=== PATIENT | female | born 1965 | race Caucasian/White ===

== ENCOUNTER 2019-04-29 14:33 | Inpatient (IN) ==
[2019-04-29] MEDS ORDERED: SODIUM CHLORIDE 0.9% 1,000 ML IV STA ×2 (14:59→15:25)
[2019-04-29 15:06] LABS: Basophils # 0.1 10*3/uL (0.0-0.2); Basophils % 0.3 % (0.0-0.8); Hematocrit 42.2 VOL% (35.7-47.0); Immature Granulocytes Absolute 0.35 #; Lymphocytes % 2.8 % (21.3-54.2); Mean Corpuscular HGB Conc 33.2 GM/DL (32-36); Mean Corpuscular Volume 92.7 FL (87-102); Mean Platelet Volume 11.5 FL (9.6-12.0); Monocytes % 4.6 % (1.7-12.7); Neutrophils % 91.3 % (38.7-73.9); Platelet Count 314 T/CUMM (130-400); Red Blood Count 4.55 MC/CUMM (3.8-5.5); Red Cell Distribution Width 13.2 % (9.3-17.3); White Blood Count 33.8 T/CUMM (4-12)
[2019-04-29 15:13] LABS: INR 1.1; PT Patient Result 11.6 SECS; Partial Thromboplastin Time 22.9 SECS (0-40)
[2019-04-29 15:19] LABS: Alanine Aminotransferase 23 U/L (13-56); Albumin 3.7 G/DL (3.4-5.0); Alkaline Phosphatase 131 U/L (45-117); Aspartate Amino Transferase 26 U/L (0-37); Blood Urea Nitrogen 35 MG/DL (7-18); Calcium 9.3 MG/DL (8.5-10.1); Osmolality,Calculated 338.7 MOS/KG (273-304); Total Protein 7.3 G/DL (6.4-8.3)
[2019-04-29 15:22] LABS: Glucose 1098 MG/DL (74-106)
[2019-04-29 15:22] LABS: Apearance,Urine CLEAR (Clear); Bilirubin,Urine Negative (Negative); Blood, Urine Small mg/dL (Negative); Glucose,Urine (UA) >=500 mg/dL (Negative); Ketones,Urine 20 mg/dL (Negative); Nitrite,Urine Negative (Negative); Protein,Urine Negative; RBC,Urine 1 /HPF (0-4); Squamous Epithelial Cell,Urine Occasional /HPF (0-10); Urine Color Straw (Yellow); Urine Specific Gravity 1.024 (1.001-1.035); Urine Urobilinogen < 2.0 EU/DL (0.2-1.0); WBC,Urine 1 /HPF (0-6)
[2019-04-29] MEDS ORDERED: INSULIN REGULAR 100 UNIT/ML IV STA (15:25)
[2019-04-29 15:37] LABS: Band Neutrophils 5 % (0-10); Lymphocytes 2 % (20-55); Platelet Estimate Normal; Segmented Neutrophils 91 % (50-85); Total Cells Counted 100
[2019-04-29 15:40] LABS: Barbiturates Screen,Urine Negative (Negative); Benzodiazepines Screen,Urine Negative (Negative); Cannabinoid Screen,Urine Positive (Negative); Opiate Screen,Urine Negative (Negative); Phencyclidine Screen,Urine Negative (Negative)
[2019-04-29 15:50] LABS: ABG Base Excess -0.1 MMOL/L (-2.5-2.5); ABG HCO3 23.7 MMOL/L (20-26); ABG Oxygen Saturation 72.8 % (95-100); ABG PCO2 40.9 MM HG (35-48); ABG PH 7.391 (7.35-7.45); ABG PO2 42.5 MM HG (80-95); ABG TCO2 21.4 MMOL/L (23-27); Pt O2 Delivery Device Room Air
[2019-04-29] MEDS ORDERED: SODIUM CHLORIDE 0.9% 2,000 ML IV ONE (16:20)
[2019-04-29] MEDS ORDERED: DEXTROSE 10% 250 ML BAG IV PRN ×2 (16:21)
[2019-04-29] MEDS ORDERED: SODIUM BICARB INJ 100 MEQ in STERILE WATER INJ 400 ML IV PRN (16:21)
[2019-04-29] MEDS ORDERED: MAGNESIUM SULF RIDER 4 GM in PREMIX 1 EACH IV PRN (16:21)
[2019-04-29] MEDS ORDERED: SODIUM PHOSPHATE INJ 20.4 MMOL in SODIUM CHLORIDE 0.9% 250 ML IV PRN (16:21)
[2019-04-29] MEDS ORDERED: INSULIN REGULAR DRIP 100 ML IV SCH (16:30)
[2019-04-29 17:49] LABS: ABG Base Excess 0.7 MMOL/L (-2.5-2.5); ABG HCO3 24.8 MMOL/L (20-26); ABG Oxygen Saturation 86.5 % (95-100); ABG PCO2 41.2 MM HG (35-48); ABG PH 7.401 (7.35-7.45); ABG PO2 55.1 MM HG (80-95); Pt O2 Delivery Device Room Air
[2019-04-29 19:21] LABS: Calcium 8.5 MG/DL (8.5-10.1); Osmolality,Calculated 330.7 MOS/KG (273-304)
[2019-04-29 20:27] LABS: Calcium 8.3 MG/DL (8.5-10.1)
[2019-04-29 20:36] LABS: Osmolality,Calculated 328.7 MOS/KG (273-304)
[2019-04-29] MEDS ORDERED: HALOPERIDOL 5 MG/ML AMP IV ONE (20:37)
[2019-04-29] MEDS: ENOXAPARIN 40 MG/0.4 ML SYRINGE SUBCUT SCH (21:30)
[2019-04-29] MEDS: SODIUM CHLORIDE 0.45% 1,000 ML IV SCH (21:31)
[2019-04-29] MEDS ORDERED: LORazepam 2 MG/1 ML VIAL IV ONE (23:50)
[2019-04-30] MEDS: POTASSIUM CHLORIDE RIDER 10 MEQ in PREMIX 1 EACH IV PRN ×9 (01:37→23:15)
[2019-04-30 01:57] LABS: Calcium 8.5 MG/DL (8.5-10.1)
[2019-04-30] MEDS ORDERED: HALOPERIDOL 5 MG/ML AMP IV ONE ×2 (02:20→06:30)
[2019-04-30] MEDS ORDERED: DIAZEPAM 10 MG/2 ML SYRINGE ONE (04:28)
[2019-04-30] MEDS ORDERED: DIAZEPAM 10 MG/2 ML SYRINGE IV ONE (04:30)
[2019-04-30 04:46] LABS: Calcium 9.1 MG/DL (8.5-10.1)
[2019-04-30] MEDS: SODIUM CHLORIDE 0.45% 1,000 ML IV SCH ×2 (05:34→09:39)
[2019-04-30] MEDS ORDERED: diphenhydrAMINE 50 MG/1 ML VIAL IV ONE (06:29)
[2019-04-30] MEDS ORDERED: LORazepam 2 MG/1 ML VIAL IV ONE (06:29)
[2019-04-30] MEDS ORDERED: DEXTROSE 5% NACL 0.45% 1,000 ML IV SCH (06:30)
[2019-04-30 08:23] LABS: Calcium 8.7 MG/DL (8.5-10.1)
[2019-04-30 08:45] LABS: Basophils # 0.1 10*3/uL (0.0-0.2); Basophils % 0.3 % (0.0-0.8); Hematocrit 45.4 VOL% (35.7-47.0); Hemoglobin 14.9 GM/DL (12.0-16.0); Immature Granulocytes % 1.1 %; Immature Granulocytes Absolute 0.35 #; Lymphocytes % 5.9 % (21.3-54.2); Mean Corpuscular HGB Conc 32.8 GM/DL (32-36); Mean Corpuscular Volume 94.2 FL (87-102); Mean Platelet Volume 11.4 FL (9.6-12.0); Monocytes % 3.2 % (1.7-12.7); Neutrophils % 89.5 % (38.7-73.9); Platelet Count 277 T/CUMM (130-400); Red Blood Count 4.82 MC/CUMM (3.8-5.5); Red Cell Distribution Width 13.4 % (9.3-17.3); White Blood Count 33.1 T/CUMM (4-12)
[2019-04-30 10:04] LABS: Band Neutrophils 2 % (0-10); Burr Cells Few; Lymphocytes 7 % (20-55); Platelet Estimate Normal; Polychromasia Slight; Segmented Neutrophils 88 % (50-85); Total Cells Counted 100
[2019-04-30] MEDS ORDERED: DEXTROSE 5% 1,000 ML IV SCH (10:30)
[2019-04-30] MEDS ORDERED: HALOPERIDOL 5 MG/ML AMP IV PRN (10:38)
[2019-04-30] MEDS ORDERED: LORazepam 2 MG/1 ML VIAL ONE ×2 (11:24→15:28)
[2019-04-30] MEDS: LORazepam 2 MG/1 ML VIAL IV PRN ×2 (11:38→15:29)
[2019-04-30] MEDS: INSULIN LISPRO 100 UNIT/ML SUBCUT SCH ×3 (11:40→20:59)
[2019-04-30] MEDS: ALBUTEROL/IPRATROPIUM 3 ML NEB RESP TX SCH ×5 (12:03→23:46)
[2019-04-30] MEDS ORDERED: INSULIN LISPRO 100 UNIT/ML SUBCUT ONE (13:20)
[2019-04-30] MEDS: POTASSIUM CHLORIDE INJ 20 MEQ in DEXTROSE 5% 1,000 ML IV SCH ×2 (13:21→20:41)
[2019-04-30 15:51] LABS: Allen Test Positive; Pt O2 Delivery Device Simple Mask
[2019-04-30 15:56] LABS: ABG Base Excess 3.7 MMOL/L (-2.5-2.5); ABG HCO3 27.2 MMOL/L (20-26); ABG Oxygen Saturation 82.2 % (95-100); ABG PCO2 37.3 MM HG (35-48); ABG PO2 47.4 MM HG (80-95); ABG TCO2 28.3 MMOL/L (23-27)
[2019-04-30] MEDS ORDERED: VECURONIUM 10 MG VIAL IV ONE ×2 (16:03→16:05)
[2019-04-30] MEDS ORDERED: ETOMIDATE 20 MG/10 ML VIAL IV ONE ×2 (16:04→16:05)
[2019-04-30] MEDS ORDERED: PROPOFOL 200 MG/20 ML VIAL IV PRN (16:05)
[2019-04-30] MEDS ORDERED: PROPOFOL 1,000 MG/100 ML BOTTLE IV ONE (16:08)
[2019-04-30] MEDS: PROPOFOL 1,000 MG/100 ML BOTTLE IV SCH (16:25)
[2019-04-30] MEDS: cefTRIAXone 1,000 MG in SYRINGE 1 EACH IV SCH (17:35)
[2019-04-30 17:39] LABS: ABG Base Excess 3.1 MMOL/L (-2.5-2.5); ABG Oxygen Saturation 92.7 % (95-100); ABG PCO2 49.2 MM HG (35-48); ABG PH 7.383 (7.35-7.45); ABG PO2 67.4 MM HG (80-95); ABG TCO2 24.7 MMOL/L (23-27); Pt O2 Delivery Device Ventilator
[2019-04-30] MEDS: AZITHROMYCIN INJ 500 MG in SODIUM CHLORIDE 0.9% 250 ML IV SCH (18:51)
[2019-04-30] MEDS ORDERED: NOREPINEPHRINE 4 MG/4 ML VIAL IV ONE (19:42)
[2019-04-30] MEDS: NOREPINEPHRINE 8 MG in SODIUM CHLORIDE 0.9% 242 ML IV PRN (19:53)
[2019-04-30] MEDS: ENOXAPARIN 40 MG/0.4 ML SYRINGE SUBCUT SCH (21:00)
[2019-05-01] MEDS: POTASSIUM CHLORIDE RIDER 10 MEQ in PREMIX 1 EACH IV PRN (00:14)
[2019-05-01] MEDS: INSULIN LISPRO 100 UNIT/ML SUBCUT SCH ×6 (00:22→21:00)
[2019-05-01 03:09] LABS: ABG Base Excess 2.6 MMOL/L (-2.5-2.5); ABG HCO3 24.9 MMOL/L (20-26); ABG Oxygen Saturation 97.5 % (95-100); ABG PCO2 32.1 MM HG (35-48); ABG PH 7.508 (7.35-7.45); ABG PO2 98.2 MM HG (80-95); ABG TCO2 25.9 MMOL/L (23-27); Allen Test Positive; Pt O2 Delivery Device Ventilator
[2019-05-01] MEDS ORDERED: PHENYLEPHRINE DRIP 40 MG/250 ML PREMIX IV PRN (03:17)
[2019-05-01] MEDS: ALBUTEROL/IPRATROPIUM 3 ML NEB RESP TX SCH ×6 (03:23→22:57)
[2019-05-01 05:49] LABS: Basophils % 0.2 % (0.0-0.8); Hematocrit 42.9 VOL% (35.7-47.0); Hemoglobin 14.5 GM/DL (12.0-16.0); Immature Granulocytes % 0.4 %; Immature Granulocytes Absolute 0.08 #; Lymphocytes # 1.6 10*3/uL (1.4-4.0); Lymphocytes % 7.9 % (21.3-54.2); Mean Corpuscular HGB Conc 33.8 GM/DL (32-36); Mean Corpuscular Volume 92.5 FL (87-102); Mean Platelet Volume 12.3 FL (9.6-12.0); Monocytes % 2.6 % (1.7-12.7); Neutrophils % 88.9 % (38.7-73.9); Platelet Count 237 T/CUMM (130-400); Red Blood Count 4.64 MC/CUMM (3.8-5.5); Red Cell Distribution Width 13.5 % (9.3-17.3); White Blood Count 20.8 T/CUMM (4-12)
[2019-05-01 06:04] LABS: Calcium 8.7 MG/DL (8.5-10.1); Osmolality,Calculated 309.7 MOS/KG (273-304)
[2019-05-01 06:05] LABS: Albumin 2.8 G/DL (3.4-5.0); Calcium 8.9 MG/DL (8.5-10.1); Osmolality,Calculated 309.7 MOS/KG (273-304)
[2019-05-01] MEDS: MAGNESIUM SULF RIDER 2 GM in PREMIX 1 EACH IV PRN (06:32)
[2019-05-01 06:43] LABS: Anisocytosis 1+; Band Neutrophils 6 % (0-10); Eosinophils 1 % (0-10); Lymphocytes 8 % (20-55); Metamyelocytes 1 %; Segmented Neutrophils 84 % (50-85); Total Cells Counted 100
[2019-05-01 06:44] LABS: Platelet Estimate Adequate
[2019-05-01] MEDS: PROPOFOL 1,000 MG/100 ML BOTTLE IV SCH ×2 (07:52→16:16)
[2019-05-01] MEDS: NOREPINEPHRINE 8 MG in SODIUM CHLORIDE 0.9% 242 ML IV PRN ×2 (08:30→21:00)
[2019-05-01] MEDS: POTASSIUM CHLORIDE INJ 20 MEQ in DEXTROSE 5% 1,000 ML IV SCH ×2 (09:31→09:35)
[2019-05-01] MEDS: SODIUM CHLOR 0.45% KCL 20 MEQ 20 MEQ/1,000 ML BAG IV SCH ×2 (11:18→20:45)
[2019-05-01] MEDS ORDERED: GLUCAGON 1 MG VIAL IM PRN (11:28)
[2019-05-01] MEDS: FAMOTIDINE 8 MG/ML 50 ML/BOTTLE PER TUBE SCH ×2 (12:24→21:01)
[2019-05-01] MEDS: POTASSIUM PHOS/SOD PHOS POWDER 250 MG PACK PO SCH ×2 (15:16→21:01)
[2019-05-01] MEDS ORDERED: DEXTROSE 5% KCL 20 MEQ 20 MEQ/1,000 ML BAG IV SCH (15:56)
[2019-05-01] MEDS: AZITHROMYCIN INJ 500 MG in SODIUM CHLORIDE 0.9% 250 ML IV SCH (17:01)
[2019-05-01] MEDS: cefTRIAXone 1,000 MG in SYRINGE 1 EACH IV SCH (17:25)
[2019-05-01] MEDS: ENOXAPARIN 40 MG/0.4 ML SYRINGE SUBCUT SCH (21:01)
[2019-05-02] MEDS: INSULIN LISPRO 100 UNIT/ML SUBCUT SCH ×7 (00:15→20:14)
[2019-05-02] MEDS: PROPOFOL 1,000 MG/100 ML BOTTLE IV SCH ×5 (00:26→21:23)
[2019-05-02] MEDS: ALBUTEROL/IPRATROPIUM 3 ML NEB RESP TX SCH ×6 (03:44→23:05)
[2019-05-02] MEDS: SODIUM CHLOR 0.45% KCL 20 MEQ 20 MEQ/1,000 ML BAG IV SCH ×3 (03:45→22:15)
[2019-05-02 04:15] LABS: Basophils % 0.2 % (0.0-0.8); Eosinophils # 0.1 10*3/uL (0.0-0.87); Eosinophils % 0.4 % (0.00-10.9); Hematocrit 35.7 VOL% (35.7-47.0); Hemoglobin 11.5 GM/DL (12.0-16.0); Immature Granulocytes % 0.6 %; Lymphocytes # 1.8 10*3/uL (1.4-4.0); Lymphocytes % 11.1 % (21.3-54.2); Mean Corpuscular HGB Conc 32.2 GM/DL (32-36); Mean Corpuscular Volume 96.2 FL (87-102); Mean Platelet Volume 11.3 FL (9.6-12.0); Monocytes % 1.6 % (1.7-12.7); Neutrophils % 86.1 % (38.7-73.9); Platelet Count 147 T/CUMM (130-400); Red Blood Count 3.71 MC/CUMM (3.8-5.5); Red Cell Distribution Width 13.6 % (9.3-17.3); White Blood Count 16.6 T/CUMM (4-12)
[2019-05-02 04:18] LABS: ABG Base Excess 3.7 MMOL/L (-2.5-2.5); ABG HCO3 27.7 MMOL/L (20-26); ABG Oxygen Saturation 96.6 % (95-100); ABG PH 7.451 (7.35-7.45); ABG PO2 79.2 MM HG (80-95); ABG TCO2 24.5 MMOL/L (23-27); Allen Test Positive; Pt O2 Delivery Device Ventilator
[2019-05-02 04:28] LABS: Calcium 8.4 MG/DL (8.5-10.1); Osmolality,Calculated 296.8 MOS/KG (273-304)
[2019-05-02 04:32] LABS: Albumin 2.1 G/DL (3.4-5.0); Calcium 7.9 MG/DL (8.5-10.1); Osmolality,Calculated 297.7 MOS/KG (273-304)
[2019-05-02] MEDS: POTASSIUM CHLORIDE RIDER 10 MEQ in PREMIX 1 EACH IV PRN ×2 (04:58→06:29)
[2019-05-02] MEDS: POTASSIUM PHOS/SOD PHOS POWDER 250 MG PACK PO SCH (08:59)
[2019-05-02] MEDS: INSULIN GLARGINE 100 UNIT/ML SUBCUT SCH (08:59)
[2019-05-02] MEDS: FAMOTIDINE 8 MG/ML 50 ML/BOTTLE PER TUBE SCH ×2 (09:02→20:20)
[2019-05-02] MEDS: cefTRIAXone 1,000 MG in SYRINGE 1 EACH IV SCH (16:36)
[2019-05-02] MEDS: AZITHROMYCIN INJ 500 MG in SODIUM CHLORIDE 0.9% 250 ML IV SCH (16:37)
[2019-05-02] MEDS: LORazepam 2 MG/1 ML VIAL IV PRN (19:43)
[2019-05-02] MEDS: ENOXAPARIN 40 MG/0.4 ML SYRINGE SUBCUT SCH (20:19)
[2019-05-03] MEDS: INSULIN LISPRO 100 UNIT/ML SUBCUT SCH ×6 (00:56→20:30)
[2019-05-03] MEDS: ALBUTEROL/IPRATROPIUM 3 ML NEB RESP TX SCH ×6 (03:00→23:07)
[2019-05-03] MEDS: PROPOFOL 1,000 MG/100 ML BOTTLE IV SCH ×3 (03:50→17:10)
[2019-05-03 04:29] LABS: ABG Base Excess 3.6 MMOL/L (-2.5-2.5); ABG HCO3 27.6 MMOL/L (20-26); ABG Oxygen Saturation 95.9 % (95-100); ABG PCO2 38.2 MM HG (35-48); ABG PH 7.465 (7.35-7.45); ABG PO2 73.5 MM HG (80-95); ABG TCO2 24.6 MMOL/L (23-27); Allen Test Positive; Pt O2 Delivery Device Ventilator
[2019-05-03] MEDS: SODIUM CHLOR 0.45% KCL 20 MEQ 20 MEQ/1,000 ML BAG IV SCH ×3 (06:11→22:58)
[2019-05-03 06:57] LABS: Basophils % 0.2 % (0.0-0.8); Eosinophils # 0.2 10*3/uL (0.0-0.87); Eosinophils % 1.3 % (0.00-10.9); Hemoglobin 11.7 GM/DL (12.0-16.0); Immature Granulocytes % 0.4 %; Immature Granulocytes Absolute 0.05 #; Lymphocytes # 1.7 10*3/uL (1.4-4.0); Lymphocytes % 13.9 % (21.3-54.2); Mean Corpuscular HGB Conc 31.6 GM/DL (32-36); Mean Corpuscular Volume 97.1 FL (87-102); Mean Platelet Volume 11.8 FL (9.6-12.0); Monocytes % 2.2 % (1.7-12.7); Platelet Count 105 T/CUMM (130-400); Red Blood Count 3.81 MC/CUMM (3.8-5.5); Red Cell Distribution Width 13.7 % (9.3-17.3); White Blood Count 11.9 T/CUMM (4-12)
[2019-05-03] MEDS: INSULIN GLARGINE 100 UNIT/ML SUBCUT SCH (09:05)
[2019-05-03] MEDS: FAMOTIDINE 8 MG/ML 50 ML/BOTTLE PER TUBE SCH ×2 (09:06→20:30)
[2019-05-03 09:10] LABS: Calcium 8.1 MG/DL (8.5-10.1); Osmolality,Calculated 289.3 MOS/KG (273-304)
[2019-05-03] MEDS: ceFAZolin 1,000 MG in SYRINGE 1 EACH IV SCH (16:59)
[2019-05-03] MEDS: AZITHROMYCIN INJ 500 MG in SODIUM CHLORIDE 0.9% 250 ML IV SCH (17:17)
[2019-05-03] MEDS: LORazepam 2 MG/1 ML VIAL IV PRN (17:43)
[2019-05-03] MEDS: ENOXAPARIN 40 MG/0.4 ML SYRINGE SUBCUT SCH (20:29)
[2019-05-04] MEDS: INSULIN LISPRO 100 UNIT/ML SUBCUT SCH ×6 (00:02→22:37)
[2019-05-04] MEDS: LORazepam 2 MG/1 ML VIAL IV PRN (00:57)
[2019-05-04] MEDS: ceFAZolin 1,000 MG in SYRINGE 1 EACH IV SCH ×2 (00:59→07:50)
[2019-05-04] MEDS: ALBUTEROL/IPRATROPIUM 3 ML NEB RESP TX SCH ×6 (03:04→22:35)
[2019-05-04] MEDS: PROPOFOL 1,000 MG/100 ML BOTTLE IV SCH ×3 (03:20→18:35)
[2019-05-04 03:35] LABS: ABG Base Excess 5.5 MMOL/L (-2.5-2.5); ABG HCO3 29.3 MMOL/L (20-26); ABG Oxygen Saturation 94.9 % (95-100); ABG PH 7.506 (7.35-7.45); ABG PO2 70.2 MM HG (80-95); ABG TCO2 24.3 MMOL/L (23-27); Allen Test Positive; Pt O2 Delivery Device Ventilator
[2019-05-04 05:01] LABS: Basophils % 0.1 % (0.0-0.8); Eosinophils # 0.1 10*3/uL (0.0-0.87); Eosinophils % 1.1 % (0.00-10.9); Hematocrit 34.6 VOL% (35.7-47.0); Hemoglobin 11.2 GM/DL (12.0-16.0); Immature Granulocytes % 0.5 %; Immature Granulocytes Absolute 0.05 #; Lymphocytes # 1.1 10*3/uL (1.4-4.0); Lymphocytes % 11.5 % (21.3-54.2); Mean Corpuscular HGB Conc 32.4 GM/DL (32-36); Mean Corpuscular Volume 96.1 FL (87-102); Mean Platelet Volume 12.2 FL (9.6-12.0); Monocytes % 4.2 % (1.7-12.7); Neutrophils % 82.6 % (38.7-73.9); Platelet Count 111 T/CUMM (130-400); Red Cell Distribution Width 13.3 % (9.3-17.3); White Blood Count 9.2 T/CUMM (4-12)
[2019-05-04 05:24] LABS: Calcium 8.1 MG/DL (8.5-10.1); Osmolality,Calculated 283.4 MOS/KG (273-304); Prealbumin 4.6 MG/DL (20-40)
[2019-05-04] MEDS: SODIUM CHLOR 0.45% KCL 20 MEQ 20 MEQ/1,000 ML BAG IV SCH ×2 (06:32→15:15)
[2019-05-04] MEDS: INSULIN GLARGINE 100 UNIT/ML SUBCUT SCH (07:50)
[2019-05-04] MEDS: FAMOTIDINE 8 MG/ML 50 ML/BOTTLE PER TUBE SCH ×2 (07:50→22:41)
[2019-05-04] MEDS: MAGNESIUM SULF RIDER 2 GM in PREMIX 1 EACH IV PRN (08:30)
[2019-05-04] MEDS: METOCLOPRAMIDE 10 MG/2 ML VIAL IV SCH ×2 (08:30→22:38)
[2019-05-04] MEDS ORDERED: cefTRIAXone 1,000 MG in SYRINGE 1 EACH IV SCH (11:30)
[2019-05-04] MEDS: guaiFENesin 200 MG/10 ML UDCUP PER TUBE SCH ×2 (12:06→22:40)
[2019-05-04] MEDS ORDERED: FUROSEMIDE 20 MG/2 ML VIAL IV ONE (15:03)
[2019-05-04] MEDS: ENOXAPARIN 40 MG/0.4 ML SYRINGE SUBCUT SCH (22:37)
[2019-05-05] MEDS: INSULIN LISPRO 100 UNIT/ML SUBCUT SCH ×6 (00:51→20:41)
[2019-05-05] MEDS: SODIUM CHLOR 0.45% KCL 20 MEQ 20 MEQ/1,000 ML BAG IV SCH ×3 (01:07→20:49)
[2019-05-05] MEDS: ALBUTEROL/IPRATROPIUM 3 ML NEB RESP TX SCH ×6 (02:26→23:47)
[2019-05-05 03:40] LABS: ABG HCO3 29.7 MMOL/L (20-26); ABG Oxygen Saturation 90.9 % (95-100); ABG PCO2 33.7 MM HG (35-48); ABG PH 7.536 (7.35-7.45); ABG PO2 55.2 MM HG (80-95); ABG TCO2 25.6 MMOL/L (23-27); Allen Test Positive; Pt O2 Delivery Device Ventilator
[2019-05-05] MEDS: PROPOFOL 1,000 MG/100 ML BOTTLE IV SCH ×3 (04:56→18:30)
[2019-05-05 05:08] LABS: Basophils % 0.2 % (0.0-0.8); Eosinophils # 0.1 10*3/uL (0.0-0.87); Eosinophils % 0.7 % (0.00-10.9); Hematocrit 32.5 VOL% (35.7-47.0); Hemoglobin 10.6 GM/DL (12.0-16.0); Immature Granulocytes Absolute 0.09 #; Lymphocytes # 1.2 10*3/uL (1.4-4.0); Lymphocytes % 13.7 % (21.3-54.2); Mean Corpuscular HGB Conc 32.6 GM/DL (32-36); Mean Corpuscular Volume 94.2 FL (87-102); Monocytes % 5.2 % (1.7-12.7); Neutrophils % 79.2 % (38.7-73.9); Platelet Count 120 T/CUMM (130-400); Red Blood Count 3.45 MC/CUMM (3.8-5.5); White Blood Count 8.9 T/CUMM (4-12)
[2019-05-05] MEDS: MAGNESIUM SULF RIDER 2 GM in PREMIX 1 EACH IV PRN (06:35)
[2019-05-05] MEDS ORDERED: LEVOFLOXACIN INJ 500 MG in PREMIX 1 EACH IV SCH (07:30)
[2019-05-05] MEDS: INSULIN GLARGINE 100 UNIT/ML SUBCUT SCH (07:35)
[2019-05-05] MEDS: METOCLOPRAMIDE 10 MG/2 ML VIAL IV SCH ×2 (07:45→20:36)
[2019-05-05] MEDS: ceFAZolin 1,000 MG in SYRINGE 1 EACH IV SCH ×2 (07:45→16:25)
[2019-05-05] MEDS: FAMOTIDINE 8 MG/ML 50 ML/BOTTLE PER TUBE SCH ×2 (07:50→20:42)
[2019-05-05] MEDS: guaiFENesin 200 MG/10 ML UDCUP PER TUBE SCH ×2 (07:50→20:35)
[2019-05-05] MEDS ORDERED: POTASSIUM CHLORIDE 20 MEQ/15 ML UDCUP PER TUBE ONE (10:21)
[2019-05-05] MEDS: LEVOFLOXACIN 750 MG TABLET PER TUBE SCH (11:00)
[2019-05-05 11:11] LABS: ABG Base Excess 5.6 MMOL/L (-2.5-2.5); ABG HCO3 29.4 MMOL/L (20-26); ABG PCO2 38.3 MM HG (35-48); ABG PO2 60.9 MM HG (80-95); ABG TCO2 26.4 MMOL/L (23-27); Pt O2 Delivery Device Ventilator
[2019-05-05] MEDS ORDERED: INSULIN GLARGINE 100 UNIT/ML SUBCUT SCH (13:23)
[2019-05-05] MEDS: LORazepam 2 MG/1 ML VIAL IV PRN (20:38)
[2019-05-05] MEDS: ENOXAPARIN 40 MG/0.4 ML SYRINGE SUBCUT SCH (20:41)
[2019-05-06] MEDS: ceFAZolin 1,000 MG in SYRINGE 1 EACH IV SCH ×3 (00:37→18:22)
[2019-05-06] MEDS: INSULIN LISPRO 100 UNIT/ML SUBCUT SCH ×6 (00:38→20:57)
[2019-05-06] MEDS: PROPOFOL 1,000 MG/100 ML BOTTLE IV SCH ×4 (02:00→18:24)
[2019-05-06] MEDS: ALBUTEROL/IPRATROPIUM 3 ML NEB RESP TX SCH ×6 (03:34→23:45)
[2019-05-06 03:42] LABS: ABG Base Excess 6.9 MMOL/L (-2.5-2.5); ABG HCO3 30.7 MMOL/L (20-26); ABG Oxygen Saturation 97.5 % (95-100); ABG PCO2 39.6 MM HG (35-48); ABG PH 7.497 (7.35-7.45); ABG PO2 89.5 MM HG (80-95); ABG TCO2 27.1 MMOL/L (23-27); Allen Test Positive; Pt O2 Delivery Device Ventilator
[2019-05-06 05:19] LABS: Basophils % 0.1 % (0.0-0.8); Eosinophils # 0.2 10*3/uL (0.0-0.87); Eosinophils % 2.8 % (0.00-10.9); Hematocrit 30.4 VOL% (35.7-47.0); Hemoglobin 9.8 GM/DL (12.0-16.0); Immature Granulocytes % 1.5 %; Immature Granulocytes Absolute 0.11 #; Lymphocytes # 1.1 10*3/uL (1.4-4.0); Mean Corpuscular HGB Conc 32.2 GM/DL (32-36); Mean Corpuscular Volume 95.6 FL (87-102); Mean Platelet Volume 11.7 FL (9.6-12.0); Monocytes % 4.2 % (1.7-12.7); Neutrophils % 76.4 % (38.7-73.9); Platelet Count 178 T/CUMM (130-400); Red Blood Count 3.18 MC/CUMM (3.8-5.5); Red Cell Distribution Width 13.2 % (9.3-17.3); White Blood Count 7.5 T/CUMM (4-12)
[2019-05-06 05:45] LABS: Calcium 8.3 MG/DL (8.5-10.1); Osmolality,Calculated 283.4 MOS/KG (273-304)
[2019-05-06] MEDS ORDERED: FUROSEMIDE 20 MG/2 ML VIAL IV ONE (06:34)
[2019-05-06] MEDS: SODIUM CHLOR 0.45% KCL 20 MEQ 20 MEQ/1,000 ML BAG IV SCH ×3 (09:25→20:47)
[2019-05-06] MEDS: INSULIN GLARGINE 100 UNIT/ML SUBCUT SCH (09:27)
[2019-05-06] MEDS: METOCLOPRAMIDE 10 MG/2 ML VIAL IV SCH ×2 (09:30→20:57)
[2019-05-06] MEDS: POTASSIUM CHLORIDE 20 MEQ/15 ML UDCUP PER TUBE SCH ×2 (09:31→12:49)
[2019-05-06] MEDS: guaiFENesin 200 MG/10 ML UDCUP PER TUBE SCH ×2 (09:31→20:56)
[2019-05-06] MEDS: FAMOTIDINE 8 MG/ML 50 ML/BOTTLE PER TUBE SCH ×2 (09:40→20:57)
[2019-05-06] MEDS: LEVOFLOXACIN 750 MG TABLET PER TUBE SCH (12:49)
[2019-05-06] MEDS: ENOXAPARIN 40 MG/0.4 ML SYRINGE SUBCUT SCH (20:56)
[2019-05-07] MEDS: ceFAZolin 1,000 MG in SYRINGE 1 EACH IV SCH ×3 (00:27→16:12)
[2019-05-07] MEDS: PROPOFOL 1,000 MG/100 ML BOTTLE IV SCH ×4 (00:31→17:35)
[2019-05-07] MEDS: INSULIN LISPRO 100 UNIT/ML SUBCUT SCH ×6 (00:32→20:07)
[2019-05-07] MEDS: ALBUTEROL/IPRATROPIUM 3 ML NEB RESP TX SCH ×6 (02:45→23:33)
[2019-05-07 04:13] LABS: ABG Base Excess 7.4 MMOL/L (-2.5-2.5); ABG HCO3 30.7 MMOL/L (20-26); ABG Oxygen Saturation 96.2 % (95-100); ABG PH 7.525 (7.35-7.45); ABG PO2 89.1 MM HG (80-95); ABG TCO2 31.9 MMOL/L (23-27)
[2019-05-07 04:33] LABS: Basophils % 0.2 % (0.0-0.8); Eosinophils # 0.2 10*3/uL (0.0-0.87); Eosinophils % 2.9 % (0.00-10.9); Hematocrit 29.7 VOL% (35.7-47.0); Hemoglobin 9.5 GM/DL (12.0-16.0); Immature Granulocytes % 1.1 %; Immature Granulocytes Absolute 0.09 #; Lymphocytes # 1.1 10*3/uL (1.4-4.0); Lymphocytes % 13.3 % (21.3-54.2); Mean Corpuscular Volume 95.8 FL (87-102); Mean Platelet Volume 11.3 FL (9.6-12.0); Monocytes % 4.5 % (1.7-12.7); Platelet Count 260 T/CUMM (130-400); Red Cell Distribution Width 13.2 % (9.3-17.3); White Blood Count 8.3 T/CUMM (4-12)
[2019-05-07 04:53] LABS: Calcium 8.4 MG/DL (8.5-10.1); Osmolality,Calculated 284.3 MOS/KG (273-304)
[2019-05-07] MEDS: SODIUM CHLOR 0.45% KCL 20 MEQ 20 MEQ/1,000 ML BAG IV SCH ×3 (05:31→19:07)
[2019-05-07] MEDS ORDERED: FUROSEMIDE 40 MG/4 ML VIAL IV ONE (07:48)
[2019-05-07] MEDS ORDERED: MAGNESIUM SULF RIDER 2 GM in PREMIX 1 EACH IV ONE (08:11)
[2019-05-07] MEDS: guaiFENesin 200 MG/10 ML UDCUP PER TUBE SCH ×2 (09:58→20:05)
[2019-05-07] MEDS: POTASSIUM CHLORIDE 20 MEQ/15 ML UDCUP PER TUBE SCH ×3 (09:58→16:11)
[2019-05-07] MEDS: FAMOTIDINE 8 MG/ML 50 ML/BOTTLE PER TUBE SCH ×2 (09:58→20:49)
[2019-05-07] MEDS: METOCLOPRAMIDE 10 MG/10 ML UDCUP NG SCH ×3 (09:58→20:05)
[2019-05-07] MEDS: INSULIN GLARGINE 100 UNIT/ML SUBCUT SCH (09:58)
[2019-05-07] MEDS: LEVOFLOXACIN 750 MG TABLET PER TUBE SCH (11:59)
[2019-05-07] MEDS: MENTHOL/ZINC OXIDE OINT 71 GM JAR TOP SCH ×2 (16:12→20:07)
[2019-05-07] MEDS: LORazepam 2 MG/1 ML VIAL IV PRN (17:06)
[2019-05-07] MEDS: ENOXAPARIN 40 MG/0.4 ML SYRINGE SUBCUT SCH (20:06)
[2019-05-08] MEDS: ceFAZolin 1,000 MG in SYRINGE 1 EACH IV SCH ×4 (00:01→23:45)
[2019-05-08] MEDS: PROPOFOL 1,000 MG/100 ML BOTTLE IV SCH ×5 (00:01→23:45)
[2019-05-08] MEDS: INSULIN LISPRO 100 UNIT/ML SUBCUT SCH ×7 (00:02→23:46)
[2019-05-08] MEDS: ALBUTEROL/IPRATROPIUM 3 ML NEB RESP TX SCH ×6 (02:45→23:34)
[2019-05-08 04:03] LABS: ABG Base Excess 9.4 MMOL/L (-2.5-2.5); ABG HCO3 33.1 MMOL/L (20-26); ABG Oxygen Saturation 97.6 % (95-100); ABG PCO2 44.9 MM HG (35-48); ABG PH 7.487 (7.35-7.45); ABG PO2 91.1 MM HG (80-95); ABG TCO2 30.5 MMOL/L (23-27); Allen Test Positive; Pt O2 Delivery Device Ventilator
[2019-05-08] MEDS: METOCLOPRAMIDE 10 MG/10 ML UDCUP NG SCH ×4 (04:11→20:52)
[2019-05-08 04:57] LABS: Basophils % 0.3 % (0.0-0.8); Eosinophils # 0.2 10*3/uL (0.0-0.87); Eosinophils % 3.1 % (0.00-10.9); Hematocrit 30.9 VOL% (35.7-47.0); Hemoglobin 9.9 GM/DL (12.0-16.0); Immature Granulocytes % 1.5 %; Immature Granulocytes Absolute 0.11 #; Lymphocytes # 1.2 10*3/uL (1.4-4.0); Lymphocytes % 16.7 % (21.3-54.2); Mean Platelet Volume 10.9 FL (9.6-12.0); Monocytes % 4.9 % (1.7-12.7); Neutrophils % 73.5 % (38.7-73.9); Platelet Count 356 T/CUMM (130-400); Red Blood Count 3.22 MC/CUMM (3.8-5.5); White Blood Count 7.2 T/CUMM (4-12)
[2019-05-08 05:07] LABS: Calcium 8.4 MG/DL (8.5-10.1); Osmolality,Calculated 280.4 MOS/KG (273-304)
[2019-05-08] MEDS: INSULIN GLARGINE 100 UNIT/ML SUBCUT SCH (08:55)
[2019-05-08] MEDS: POTASSIUM CHLORIDE 20 MEQ/15 ML UDCUP PER TUBE SCH ×3 (08:57→17:59)
[2019-05-08] MEDS: FUROSEMIDE 40 MG/4 ML VIAL IV SCH (08:57)
[2019-05-08] MEDS: guaiFENesin 200 MG/10 ML UDCUP PER TUBE SCH ×2 (08:58→20:53)
[2019-05-08] MEDS: FAMOTIDINE 8 MG/ML 50 ML/BOTTLE PER TUBE SCH ×2 (08:59→21:01)
[2019-05-08] MEDS: MENTHOL/ZINC OXIDE OINT 71 GM JAR TOP SCH ×2 (09:00→20:53)
[2019-05-08] MEDS: LEVOFLOXACIN 750 MG TABLET PER TUBE SCH (11:03)
[2019-05-08] MEDS: SODIUM CHLOR 0.45% KCL 20 MEQ 20 MEQ/1,000 ML BAG IV SCH ×2 (17:50→21:45)
[2019-05-08] MEDS ORDERED: POTASSIUM CHLORIDE 20 MEQ/15 ML UDCUP PER TUBE SCH (18:00)
[2019-05-08] MEDS: ENOXAPARIN 40 MG/0.4 ML SYRINGE SUBCUT SCH (20:53)
[2019-05-09 03:09] LABS: ABG HCO3 35.8 MMOL/L (20-26); ABG Oxygen Saturation 97.3 % (95-100); ABG PCO2 48.2 MM HG (35-48); ABG PH 7.489 (7.35-7.45); ABG PO2 99.7 MM HG (80-95); ABG TCO2 37.3 MMOL/L (23-27); Allen Test Positive; Pt O2 Delivery Device Ventilator
[2019-05-09] MEDS: METOCLOPRAMIDE 10 MG/10 ML UDCUP NG SCH ×4 (03:24→20:52)
[2019-05-09] MEDS: ALBUTEROL/IPRATROPIUM 3 ML NEB RESP TX SCH ×6 (03:43→22:31)
[2019-05-09] MEDS: PROPOFOL 1,000 MG/100 ML BOTTLE IV SCH ×5 (04:50→23:33)
[2019-05-09] MEDS: INSULIN LISPRO 100 UNIT/ML SUBCUT SCH ×5 (04:50→19:31)
[2019-05-09 04:55] LABS: Basophils % 0.4 % (0.0-0.8); Eosinophils # 0.2 10*3/uL (0.0-0.87); Eosinophils % 2.1 % (0.00-10.9); Hematocrit 35.2 VOL% (35.7-47.0); Hemoglobin 11.4 GM/DL (12.0-16.0); Immature Granulocytes % 1.4 %; Immature Granulocytes Absolute 0.15 #; Lymphocytes # 1.5 10*3/uL (1.4-4.0); Lymphocytes % 13.5 % (21.3-54.2); Mean Corpuscular HGB Conc 32.4 GM/DL (32-36); Mean Corpuscular Volume 94.6 FL (87-102); Mean Platelet Volume 10.8 FL (9.6-12.0); Monocytes % 5.3 % (1.7-12.7); Neutrophils % 77.3 % (38.7-73.9); Platelet Count 463 T/CUMM (130-400); Red Blood Count 3.72 MC/CUMM (3.8-5.5); Red Cell Distribution Width 13.1 % (9.3-17.3)
[2019-05-09 04:57] LABS: Calcium 8.8 MG/DL (8.5-10.1); Osmolality,Calculated 275.8 MOS/KG (273-304)
[2019-05-09] MEDS: ceFAZolin 1,000 MG in SYRINGE 1 EACH IV SCH ×3 (08:14→22:33)
[2019-05-09] MEDS ORDERED: MAGNESIUM SULF RIDER 2 GM in PREMIX 1 EACH IV ONE (08:35)
[2019-05-09] MEDS: INSULIN GLARGINE 100 UNIT/ML SUBCUT SCH (08:53)
[2019-05-09] MEDS: FAMOTIDINE 8 MG/ML 50 ML/BOTTLE PER TUBE SCH ×2 (08:53→21:02)
[2019-05-09] MEDS: guaiFENesin 200 MG/10 ML UDCUP PER TUBE SCH ×2 (08:53→20:52)
[2019-05-09] MEDS: MENTHOL/ZINC OXIDE OINT 71 GM JAR TOP SCH ×2 (08:54→21:02)
[2019-05-09] MEDS: FUROSEMIDE 40 MG/4 ML VIAL IV SCH (08:54)
[2019-05-09] MEDS: POTASSIUM CHLORIDE 20 MEQ/15 ML UDCUP PER TUBE SCH ×3 (09:21→17:21)
[2019-05-09] MEDS: LEVOFLOXACIN 750 MG TABLET PER TUBE SCH (11:42)
[2019-05-09] MEDS: SODIUM CHLOR 0.45% KCL 20 MEQ 20 MEQ/1,000 ML BAG IV SCH (12:26)
[2019-05-09] MEDS: ENOXAPARIN 40 MG/0.4 ML SYRINGE SUBCUT SCH (20:52)
[2019-05-10] MEDS: INSULIN LISPRO 100 UNIT/ML SUBCUT SCH ×6 (00:24→21:56)
[2019-05-10] MEDS: ALBUTEROL/IPRATROPIUM 3 ML NEB RESP TX SCH ×6 (02:07→23:03)
[2019-05-10] MEDS: METOCLOPRAMIDE 10 MG/10 ML UDCUP NG SCH ×2 (02:37→08:53)
[2019-05-10 02:51] LABS: Basophils # 0.1 10*3/uL (0.0-0.2); Basophils % 0.4 % (0.0-0.8); Eosinophils # 0.2 10*3/uL (0.0-0.87); Eosinophils % 1.2 % (0.00-10.9); Hemoglobin 11.8 GM/DL (12.0-16.0); Immature Granulocytes % 1.2 %; Immature Granulocytes Absolute 0.17 #; Lymphocytes # 1.4 10*3/uL (1.4-4.0); Lymphocytes % 9.4 % (21.3-54.2); Mean Corpuscular HGB Conc 32.8 GM/DL (32-36); Mean Corpuscular Volume 94.7 FL (87-102); Mean Platelet Volume 10.1 FL (9.6-12.0); Monocytes % 4.6 % (1.7-12.7); Neutrophils % 83.2 % (38.7-73.9); Platelet Count 506 T/CUMM (130-400); White Blood Count 14.5 T/CUMM (4-12)
[2019-05-10 03:25] LABS: Calcium 8.5 MG/DL (8.5-10.1); Osmolality,Calculated 281.7 MOS/KG (273-304)
[2019-05-10 03:50] LABS: ABG Base Excess 11.4 MMOL/L (-2.5-2.5); ABG HCO3 35.2 MMOL/L (20-26); ABG Oxygen Saturation 98.3 % (95-100); ABG PCO2 52.4 MM HG (35-48); ABG PH 7.462 (7.35-7.45); ABG TCO2 32.8 MMOL/L (23-27); Allen Test Positive; Pt O2 Delivery Device Ventilator
[2019-05-10] MEDS: PROPOFOL 1,000 MG/100 ML BOTTLE IV SCH ×2 (04:48→17:32)
[2019-05-10] MEDS: MEROPENEM 1,000 MG in SODIUM CHLORIDE 0.9% 100 ML IV SCH ×2 (08:46→15:49)
[2019-05-10] MEDS: FUROSEMIDE 40 MG/4 ML VIAL IV SCH (08:47)
[2019-05-10] MEDS: INSULIN GLARGINE 100 UNIT/ML SUBCUT SCH (08:47)
[2019-05-10] MEDS: FAMOTIDINE 8 MG/ML 50 ML/BOTTLE PER TUBE SCH ×2 (08:53→21:57)
[2019-05-10] MEDS: guaiFENesin 200 MG/10 ML UDCUP PER TUBE SCH ×2 (08:55→21:57)
[2019-05-10] MEDS: MENTHOL/ZINC OXIDE OINT 71 GM JAR TOP SCH ×2 (09:37→21:57)
[2019-05-10] MEDS: LEVOFLOXACIN 750 MG TABLET PER TUBE SCH (11:00)
[2019-05-10] MEDS: SODIUM CHLOR 0.45% KCL 20 MEQ 20 MEQ/1,000 ML BAG IV SCH (11:54)
[2019-05-10] MEDS: ENOXAPARIN 40 MG/0.4 ML SYRINGE SUBCUT SCH (21:57)
[2019-05-11] MEDS: MEROPENEM 1,000 MG in SODIUM CHLORIDE 0.9% 100 ML IV SCH ×3 (00:21→15:03)
[2019-05-11] MEDS: INSULIN LISPRO 100 UNIT/ML SUBCUT SCH ×6 (00:22→21:51)
[2019-05-11] MEDS: ALBUTEROL/IPRATROPIUM 3 ML NEB RESP TX SCH ×6 (03:05→23:29)
[2019-05-11 04:55] LABS: Basophils # 0.1 10*3/uL (0.0-0.2); Basophils % 0.4 % (0.0-0.8); Eosinophils # 0.1 10*3/uL (0.0-0.87); Eosinophils % 0.8 % (0.00-10.9); Hematocrit 38.8 VOL% (35.7-47.0); Hemoglobin 12.9 GM/DL (12.0-16.0); Immature Granulocytes % 1.3 %; Immature Granulocytes Absolute 0.24 #; Lymphocytes # 1.7 10*3/uL (1.4-4.0); Mean Corpuscular HGB Conc 33.2 GM/DL (32-36); Mean Corpuscular Volume 93.9 FL (87-102); Monocytes % 4.4 % (1.7-12.7); Neutrophils % 84.1 % (38.7-73.9); Platelet Count 542 T/CUMM (130-400); Red Blood Count 4.13 MC/CUMM (3.8-5.5); Red Cell Distribution Width 13.2 % (9.3-17.3); White Blood Count 18.7 T/CUMM (4-12)
[2019-05-11 05:09] LABS: Calcium 9.6 MG/DL (8.5-10.1)
[2019-05-11] MEDS: guaiFENesin 200 MG/10 ML UDCUP PER TUBE SCH ×2 (09:04→21:35)
[2019-05-11] MEDS: FUROSEMIDE 40 MG/4 ML VIAL IV SCH (09:05)
[2019-05-11] MEDS: INSULIN GLARGINE 100 UNIT/ML SUBCUT SCH (09:05)
[2019-05-11] MEDS: MENTHOL/ZINC OXIDE OINT 71 GM JAR TOP SCH ×2 (12:22→21:35)
[2019-05-11] MEDS: FAMOTIDINE 8 MG/ML 50 ML/BOTTLE PER TUBE SCH (12:22)
[2019-05-11] MEDS: LEVOFLOXACIN 750 MG TABLET PER TUBE SCH (12:22)
[2019-05-11] MEDS ORDERED: HydrOXYzine PAMOATE 25 MG CAPSULE PO PRN (13:23)
[2019-05-11] MEDS: SODIUM CHLOR 0.45% KCL 20 MEQ 20 MEQ/1,000 ML BAG IV SCH (13:57)
[2019-05-11] MEDS: CARVEDILOL 3.125 MG TABLET PO SCH (21:35)
[2019-05-11] MEDS: VENLAFAXINE XR 75 MG CAPSULE PO SCH (21:35)
[2019-05-11] MEDS: ENOXAPARIN 40 MG/0.4 ML SYRINGE SUBCUT SCH (21:35)
[2019-05-11] MEDS: FAMOTIDINE 8 MG/ML 50 ML/BOTTLE PO SCH (21:35)
[2019-05-11] MEDS: GABAPENTIN 300 MG CAPSULE PO SCH (21:35)
[2019-05-12] MEDS: MEROPENEM 1,000 MG in SODIUM CHLORIDE 0.9% 100 ML IV SCH ×4 (01:16→23:54)
[2019-05-12] MEDS: ALBUTEROL/IPRATROPIUM 3 ML NEB RESP TX SCH ×6 (03:57→23:51)
[2019-05-12 05:05] LABS: Basophils # 0.1 10*3/uL (0.0-0.2); Basophils % 0.5 % (0.0-0.8); Eosinophils # 0.2 10*3/uL (0.0-0.87); Eosinophils % 0.9 % (0.00-10.9); Hematocrit 40.1 VOL% (35.7-47.0); Hemoglobin 13.6 GM/DL (12.0-16.0); Immature Granulocytes % 1.6 %; Immature Granulocytes Absolute 0.27 #; Lymphocytes # 1.9 10*3/uL (1.4-4.0); Lymphocytes % 11.4 % (21.3-54.2); Mean Corpuscular HGB Conc 33.9 GM/DL (32-36); Mean Corpuscular Volume 92.4 FL (87-102); Mean Platelet Volume 9.9 FL (9.6-12.0); Monocytes % 5.9 % (1.7-12.7); Neutrophils % 79.7 % (38.7-73.9); Platelet Count 560 T/CUMM (130-400); Red Blood Count 4.34 MC/CUMM (3.8-5.5); Red Cell Distribution Width 12.7 % (9.3-17.3); White Blood Count 16.9 T/CUMM (4-12)
[2019-05-12 05:17] LABS: Calcium 9.2 MG/DL (8.5-10.1); Osmolality,Calculated 268.1 MOS/KG (273-304)
[2019-05-12] MEDS ORDERED: ONDANSETRON 4 MG/2 ML VIAL ONE (05:21)
[2019-05-12] MEDS: ONDANSETRON 4 MG/2 ML VIAL IV PRN ×4 (05:25→22:13)
[2019-05-12] MEDS: INSULIN LISPRO 100 UNIT/ML SUBCUT SCH ×4 (09:53→21:40)
[2019-05-12] MEDS: INSULIN GLARGINE 100 UNIT/ML SUBCUT SCH (09:54)
[2019-05-12] MEDS: LEVOTHYROXINE 100 MCG TABLET PO SCH (09:55)
[2019-05-12] MEDS: LISINOPRIL 20 MG TABLET PO SCH (09:55)
[2019-05-12] MEDS: CARVEDILOL 3.125 MG TABLET PO SCH ×2 (09:55→21:39)
[2019-05-12] MEDS: FUROSEMIDE 40 MG/4 ML VIAL IV SCH (09:56)
[2019-05-12] MEDS: guaiFENesin 200 MG/10 ML UDCUP PER TUBE SCH ×2 (10:04→21:41)
[2019-05-12] MEDS: MENTHOL/ZINC OXIDE OINT 71 GM JAR TOP SCH ×2 (10:04→21:39)
[2019-05-12] MEDS: ATORVASTATIN 20 MG TABLET PO SCH (10:04)
[2019-05-12] MEDS: ARIPiprazole 5 MG TABLET PO SCH (10:04)
[2019-05-12] MEDS: VENLAFAXINE XR 75 MG CAPSULE PO SCH ×2 (10:04→21:40)
[2019-05-12] MEDS: FAMOTIDINE 8 MG/ML 50 ML/BOTTLE PO SCH ×2 (10:04→21:41)
[2019-05-12] MEDS: GABAPENTIN 300 MG CAPSULE PO SCH ×2 (10:04→21:41)
[2019-05-12] MEDS: LEVOFLOXACIN 750 MG TABLET PO SCH (12:55)
[2019-05-12] MEDS: ENOXAPARIN 40 MG/0.4 ML SYRINGE SUBCUT SCH (21:39)
[2019-05-13] MEDS: ALBUTEROL/IPRATROPIUM 3 ML NEB RESP TX SCH ×6 (02:56→23:47)
[2019-05-13 05:28] LABS: Basophils # 0.1 10*3/uL (0.0-0.2); Basophils % 0.5 % (0.0-0.8); Eosinophils # 0.2 10*3/uL (0.0-0.87); Eosinophils % 1.2 % (0.00-10.9); Hematocrit 41.1 VOL% (35.7-47.0); Hemoglobin 13.9 GM/DL (12.0-16.0); Immature Granulocytes % 1.8 %; Immature Granulocytes Absolute 0.27 #; Lymphocytes # 2.1 10*3/uL (1.4-4.0); Lymphocytes % 13.9 % (21.3-54.2); Mean Corpuscular HGB Conc 33.8 GM/DL (32-36); Mean Corpuscular Volume 92.4 FL (87-102); Mean Platelet Volume 9.9 FL (9.6-12.0); Monocytes % 5.1 % (1.7-12.7); Neutrophils % 77.5 % (38.7-73.9); Platelet Count 529 T/CUMM (130-400); Red Blood Count 4.45 MC/CUMM (3.8-5.5); Red Cell Distribution Width 12.9 % (9.3-17.3)
[2019-05-13 05:35] LABS: Calcium 9.5 MG/DL (8.5-10.1); Osmolality,Calculated 269.5 MOS/KG (273-304)
[2019-05-13] MEDS: MEROPENEM 1,000 MG in SODIUM CHLORIDE 0.9% 100 ML IV SCH ×3 (07:52→23:04)
[2019-05-13] MEDS: INSULIN LISPRO 100 UNIT/ML SUBCUT SCH ×4 (07:54→21:29)
[2019-05-13] MEDS ORDERED: SODIUM CHLORIDE 0.9% 500 ML IV ONE (08:58)
[2019-05-13] MEDS: VENLAFAXINE XR 75 MG CAPSULE PO SCH ×2 (09:54→21:29)
[2019-05-13] MEDS: guaiFENesin 200 MG/10 ML UDCUP PER TUBE SCH ×2 (09:54→21:31)
[2019-05-13] MEDS: LEVOTHYROXINE 100 MCG TABLET PO SCH (09:54)
[2019-05-13] MEDS: MENTHOL/ZINC OXIDE OINT 71 GM JAR TOP SCH ×2 (09:54→21:30)
[2019-05-13] MEDS: ARIPiprazole 5 MG TABLET PO SCH (09:54)
[2019-05-13] MEDS: CARVEDILOL 3.125 MG TABLET PO SCH ×2 (09:54→21:29)
[2019-05-13] MEDS: ATORVASTATIN 20 MG TABLET PO SCH (09:54)
[2019-05-13] MEDS: GABAPENTIN 300 MG CAPSULE PO SCH ×2 (09:54→21:32)
[2019-05-13] MEDS: LISINOPRIL 20 MG TABLET PO SCH (09:54)
[2019-05-13] MEDS: INSULIN GLARGINE 100 UNIT/ML SUBCUT SCH (09:55)
[2019-05-13] MEDS: FAMOTIDINE 8 MG/ML 50 ML/BOTTLE PO SCH ×2 (09:55→23:04)
[2019-05-13] MEDS: LEVOFLOXACIN 750 MG TABLET PO SCH (10:59)
[2019-05-13] MEDS ORDERED: LEVOFLOXACIN INJ 750 MG in PREMIX 1 EACH IV SCH (16:00)
[2019-05-13] MEDS: SODIUM CHLORIDE 0.9% 1,000 ML IV SCH (17:47)
[2019-05-13] MEDS: ONDANSETRON 4 MG/2 ML VIAL IV PRN (20:31)
[2019-05-13] MEDS: ENOXAPARIN 40 MG/0.4 ML SYRINGE SUBCUT SCH (21:29)
[2019-05-14] MEDS: ALBUTEROL/IPRATROPIUM 3 ML NEB RESP TX SCH ×6 (02:22→22:54)
[2019-05-14] MEDS: ONDANSETRON 4 MG/2 ML VIAL IV PRN ×3 (04:37→18:17)
[2019-05-14 04:50] LABS: Basophils # 0.1 10*3/uL (0.0-0.2); Basophils % 0.5 % (0.0-0.8); Eosinophils # 0.2 10*3/uL (0.0-0.87); Eosinophils % 1.7 % (0.00-10.9); Hematocrit 38.8 VOL% (35.7-47.0); Hemoglobin 13.2 GM/DL (12.0-16.0); Immature Granulocytes % 1.3 %; Immature Granulocytes Absolute 0.17 #; Lymphocytes # 2.1 10*3/uL (1.4-4.0); Lymphocytes % 16.4 % (21.3-54.2); Mean Corpuscular Volume 92.2 FL (87-102); Mean Platelet Volume 9.7 FL (9.6-12.0); Monocytes % 6.4 % (1.7-12.7); Neutrophils % 73.7 % (38.7-73.9); Platelet Count 484 T/CUMM (130-400); Red Blood Count 4.21 MC/CUMM (3.8-5.5); Red Cell Distribution Width 13.1 % (9.3-17.3); White Blood Count 12.9 T/CUMM (4-12)
[2019-05-14 05:16] LABS: Calcium 8.8 MG/DL (8.5-10.1); Calcium 9.1 MG/DL (8.5-10.1); Osmolality,Calculated 272.9 MOS/KG (273-304)
[2019-05-14] MEDS: INSULIN LISPRO 100 UNIT/ML SUBCUT SCH ×4 (07:56→20:26)
[2019-05-14] MEDS: MEROPENEM 1,000 MG in SODIUM CHLORIDE 0.9% 100 ML IV SCH (07:57)
[2019-05-14] MEDS: INSULIN GLARGINE 100 UNIT/ML SUBCUT SCH (09:24)
[2019-05-14] MEDS: ARIPiprazole 5 MG TABLET PO SCH (09:24)
[2019-05-14] MEDS: CARVEDILOL 3.125 MG TABLET PO SCH ×2 (09:24→20:31)
[2019-05-14] MEDS: GABAPENTIN 300 MG CAPSULE PO SCH ×2 (09:31→20:31)
[2019-05-14] MEDS: LEVOTHYROXINE 100 MCG TABLET PO SCH (09:31)
[2019-05-14] MEDS: guaiFENesin 200 MG/10 ML UDCUP PER TUBE SCH ×2 (09:31→20:34)
[2019-05-14] MEDS: FAMOTIDINE 8 MG/ML 50 ML/BOTTLE PO SCH (09:31)
[2019-05-14] MEDS: VENLAFAXINE XR 75 MG CAPSULE PO SCH ×2 (09:31→20:30)
[2019-05-14] MEDS: MENTHOL/ZINC OXIDE OINT 71 GM JAR TOP SCH ×2 (09:31→20:31)
[2019-05-14] MEDS: ATORVASTATIN 20 MG TABLET PO SCH (09:31)
[2019-05-14] MEDS: SODIUM CHLORIDE 0.9% 1,000 ML IV SCH (14:32)
[2019-05-15] MEDS: ENOXAPARIN 40 MG/0.4 ML SYRINGE SUBCUT SCH ×2 (01:02→20:19)
[2019-05-15] MEDS: FAMOTIDINE 8 MG/ML 50 ML/BOTTLE PO SCH ×3 (01:52→20:29)
[2019-05-15] MEDS: ALBUTEROL/IPRATROPIUM 3 ML NEB RESP TX SCH ×6 (03:15→23:03)
[2019-05-15 06:17] LABS: Basophils # 0.1 10*3/uL (0.0-0.2); Basophils % 0.9 % (0.0-0.8); Eosinophils # 0.2 10*3/uL (0.0-0.87); Hematocrit 40.3 VOL% (35.7-47.0); Hemoglobin 13.6 GM/DL (12.0-16.0); Immature Granulocytes % 0.9 %; Lymphocytes # 2.3 10*3/uL (1.4-4.0); Lymphocytes % 21.9 % (21.3-54.2); Mean Corpuscular HGB Conc 33.7 GM/DL (32-36); Mean Corpuscular Volume 91.8 FL (87-102); Mean Platelet Volume 9.6 FL (9.6-12.0); Monocytes % 8.3 % (1.7-12.7); Platelet Count 441 T/CUMM (130-400); Red Blood Count 4.39 MC/CUMM (3.8-5.5); Red Cell Distribution Width 13.1 % (9.3-17.3); White Blood Count 10.6 T/CUMM (4-12)
[2019-05-15 06:33] LABS: Calcium 8.9 MG/DL (8.5-10.1); Osmolality,Calculated 280.7 MOS/KG (273-304)
[2019-05-15] MEDS: INSULIN LISPRO 100 UNIT/ML SUBCUT SCH ×4 (08:05→20:19)
[2019-05-15] MEDS ORDERED: INSULIN GLARGINE 100 UNIT/ML SUBCUT SCH (09:00)
[2019-05-15] MEDS ORDERED: LACTULOSE 20 GM/30 ML UDCUP PO ONE (09:13)
[2019-05-15] MEDS: CARVEDILOL 3.125 MG TABLET PO SCH ×2 (09:49→20:20)
[2019-05-15] MEDS: ATORVASTATIN 20 MG TABLET PO SCH (09:49)
[2019-05-15] MEDS: GABAPENTIN 300 MG CAPSULE PO SCH ×2 (09:49→20:20)
[2019-05-15] MEDS: ARIPiprazole 5 MG TABLET PO SCH (09:49)
[2019-05-15] MEDS: guaiFENesin 200 MG/10 ML UDCUP PER TUBE SCH ×2 (09:49→20:24)
[2019-05-15] MEDS: LEVOTHYROXINE 100 MCG TABLET PO SCH (09:49)
[2019-05-15] MEDS: VENLAFAXINE XR 75 MG CAPSULE PO SCH ×2 (09:49→20:20)
[2019-05-15] MEDS: MENTHOL/ZINC OXIDE OINT 71 GM JAR TOP SCH ×2 (09:58→20:22)
[2019-05-15] MEDS: SODIUM CHLORIDE 0.9% 1,000 ML IV SCH (12:50)
[2019-05-15] MEDS ORDERED: CYCLOBENZAPRINE 10 MG TABLET PO PRN (14:59)
[2019-05-15] MEDS ORDERED: LEVOFLOXACIN 750 MG TABLET PO SCH (16:00)
[2019-05-15] MEDS: ONDANSETRON 4 MG/2 ML VIAL IV PRN (20:18)
[2019-05-16] MEDS: ALBUTEROL/IPRATROPIUM 3 ML NEB RESP TX SCH ×6 (03:04→23:19)
[2019-05-16 04:41] LABS: Basophils # 0.1 10*3/uL (0.0-0.2); Basophils % 0.9 % (0.0-0.8); Eosinophils # 0.2 10*3/uL (0.0-0.87); Eosinophils % 2.4 % (0.00-10.9); Hematocrit 39.3 VOL% (35.7-47.0); Hemoglobin 12.6 GM/DL (12.0-16.0); Immature Granulocytes % 0.9 %; Immature Granulocytes Absolute 0.08 #; Lymphocytes # 2.2 10*3/uL (1.4-4.0); Lymphocytes % 23.7 % (21.3-54.2); Mean Corpuscular HGB Conc 32.1 GM/DL (32-36); Mean Corpuscular Volume 93.6 FL (87-102); Mean Platelet Volume 9.7 FL (9.6-12.0); Monocytes % 8.2 % (1.7-12.7); Neutrophils % 63.9 % (38.7-73.9); Platelet Count 387 T/CUMM (130-400); Red Cell Distribution Width 12.8 % (9.3-17.3); White Blood Count 9.1 T/CUMM (4-12)
[2019-05-16] MEDS: ONDANSETRON 4 MG/2 ML VIAL IV PRN ×2 (06:11→21:00)
[2019-05-16] MEDS: SODIUM CHLORIDE 0.9% 1,000 ML IV SCH (06:41)
[2019-05-16] MEDS: INSULIN LISPRO 100 UNIT/ML SUBCUT SCH ×4 (07:39→21:00)
[2019-05-16] MEDS: guaiFENesin 200 MG/10 ML UDCUP PER TUBE SCH ×2 (08:46→20:59)
[2019-05-16] MEDS: FAMOTIDINE 8 MG/ML 50 ML/BOTTLE PO SCH ×2 (08:47→21:06)
[2019-05-16] MEDS: MENTHOL/ZINC OXIDE OINT 71 GM JAR TOP SCH ×2 (08:47→23:59)
[2019-05-16] MEDS: ATORVASTATIN 20 MG TABLET PO SCH (08:47)
[2019-05-16] MEDS: CARVEDILOL 3.125 MG TABLET PO SCH ×2 (08:47→20:59)
[2019-05-16] MEDS: INSULIN GLARGINE 100 UNIT/ML SUBCUT SCH (08:47)
[2019-05-16] MEDS: ARIPiprazole 5 MG TABLET PO SCH (08:47)
[2019-05-16] MEDS: VENLAFAXINE XR 75 MG CAPSULE PO SCH ×2 (08:47→20:59)
[2019-05-16] MEDS: LEVOTHYROXINE 100 MCG TABLET PO SCH (08:47)
[2019-05-16] MEDS: GABAPENTIN 300 MG CAPSULE PO SCH ×2 (08:47→20:59)
[2019-05-16] MEDS: ENOXAPARIN 40 MG/0.4 ML SYRINGE SUBCUT SCH (21:00)
[2019-05-17 04:45] LABS: Basophils # 0.1 10*3/uL (0.0-0.2); Basophils % 0.9 % (0.0-0.8); Eosinophils # 0.3 10*3/uL (0.0-0.87); Eosinophils % 2.4 % (0.00-10.9); Hematocrit 39.9 VOL% (35.7-47.0); Hemoglobin 13.2 GM/DL (12.0-16.0); Immature Granulocytes % 0.5 %; Immature Granulocytes Absolute 0.06 #; Lymphocytes # 2.4 10*3/uL (1.4-4.0); Lymphocytes % 21.6 % (21.3-54.2); Mean Corpuscular HGB Conc 33.1 GM/DL (32-36); Mean Corpuscular Volume 92.6 FL (87-102); Mean Platelet Volume 10.2 FL (9.6-12.0); Monocytes % 7.1 % (1.7-12.7); Neutrophils % 67.5 % (38.7-73.9); Platelet Count 388 T/CUMM (130-400); Red Blood Count 4.31 MC/CUMM (3.8-5.5); Red Cell Distribution Width 12.9 % (9.3-17.3); White Blood Count 11.1 T/CUMM (4-12)
[2019-05-17] MEDS: ONDANSETRON 4 MG/2 ML VIAL IV PRN (04:47)
[2019-05-17] MEDS: SODIUM CHLORIDE 0.9% 1,000 ML IV SCH (04:53)
[2019-05-17 05:01] LABS: Calcium 8.8 MG/DL (8.5-10.1); Osmolality,Calculated 274.4 MOS/KG (273-304)
[2019-05-17] MEDS: ALBUTEROL/IPRATROPIUM 3 ML NEB RESP TX SCH (07:52)
[2019-05-17] MEDS: INSULIN LISPRO 100 UNIT/ML SUBCUT SCH (08:17)
[2019-05-17] MEDS: VENLAFAXINE XR 75 MG CAPSULE PO SCH (08:19)
[2019-05-17] MEDS: INSULIN GLARGINE 100 UNIT/ML SUBCUT SCH (08:19)
[2019-05-17] MEDS: ARIPiprazole 5 MG TABLET PO SCH (08:20)
[2019-05-17] MEDS: ATORVASTATIN 20 MG TABLET PO SCH (08:20)
[2019-05-17] MEDS: CARVEDILOL 3.125 MG TABLET PO SCH (08:20)
[2019-05-17] MEDS: GABAPENTIN 300 MG CAPSULE PO SCH (08:20)
[2019-05-17] MEDS: LEVOTHYROXINE 100 MCG TABLET PO SCH (08:20)
[2019-05-17] MEDS: MENTHOL/ZINC OXIDE OINT 71 GM JAR TOP SCH (08:24)
[2019-05-17] MEDS: guaiFENesin 200 MG/10 ML UDCUP PER TUBE SCH (08:26)
[2019-05-17 09:28] VITALS: BP 132/61
[2019-05-17] MEDS ORDERED: LEVOFLOXACIN 750 MG TABLET PO SCH (11:00)
== END 2019-05-17 10:20 | disposition home or self-care (01) | DRG 637 ==
LOC: EDBD → EDUNIT# → N.ED 14:33 → SUATTDRO 15:31 → N.EDINP 16:18 → N.ICU 18:26 → N.CC 05-01 16:01 → N.ICU 05-09 10:59 → N.5E 05-11 17:51
PROVIDERS: ADMIT Internal Medicine Geriatric Medicine; ATTEND Internal Medicine